=== PATIENT | female | born 1990 | race American Indian/Alaskan Native ===

== ENCOUNTER 2017-09-28 12:44 | Emergency (ER) | payer BC, OTHER ==
[2017-09-28 13:16] VITALS: BP 112/56; PULSE 80; RESP 18; TEMP 99
[2017-09-28] MEDS ORDERED: predniSONE 20 MG TAB PO STA (14:06)
[2017-09-28] MEDS ORDERED: IBUPROFEN 800 MG TAB PO STA (14:07)
[2017-09-28] MEDS ORDERED: IBUPROFEN 600 MG TAB PO STA (14:13)
--- NOTE | 2017-09-28 14:16 | ED ---
Extremity Problem HPI - General Chief complaint: Extremity Problem,Nontraumatic Stated complaint: Numbness in Arm Time Seen by Provider: 09/28/17 13:57 Source: patient Mode of arrival: ambulatory Limitations: no limitations - History of Present Illness Initial comments: Patient is a right-handed 27-year-old female presenting to the emergency department with chief complaint of paresthesia to her right upper forearm. Patient states the paresthesia started after she woke up about noon today. Patient reports similar symptoms in the past but states they have usually dissipated after she started moving her arm around. Patient states she became concerned because the paresthesia is lingering. Patient denies any recent injury or trauma. Patient denies any radiation to her neck or right hand or fingers. Patient denies any recent illness, chills, fevers, nausea, vomiting, shortness of breath, chest pain, or abdominal pain. Patient denies any tingling. - Related Data Home Medications Medication Instructions Recorded Confirmed Kib-Bgjb-Odooj Acid 1 each PO DAILY 12/09/14 12/21/14 [-U Capsule] Calcium Carbonate [Tums] 500 mg PO TID PRN 12/21/14 12/21/14 Previous Rx's Medication Instructions Recorded Ibuprofen [Motrin] 600 mg PO Q6HR PRN #30 tab 12/23/14 Sertraline HCl [Zoloft] 25 mg PO DAILY #7 tab 12/23/14 Sertraline [Zoloft] 50 mg PO DAILY #30 tab 12/23/14 Ibuprofen [Motrin] 600 mg PO Q6HR PRN #20 tab 09/28/17 Allergies Allergy/AdvReac Type Severity Reaction Status Date / Time No Known Allergies Allergy Verified 09/28/17 13:16 Review of Systems ROS Statement: Those systems with pertinent positive or pertinent negative responses have been documented in the HPI. ROS Other: All systems not noted in ROS Statement are negative. Past Medical History Past Medical History: No Reported History History of Any Multi-Drug Resistant Organisms: None Reported Past Surgical History: No Surgical Hx Reported Past Psychological History: Anxiety, Depression Smoking Status: Never smoker Past Alcohol Use History: None Reported Past Drug Use History: None Reported General Exam - General Exam Comments Initial Comments: GENERAL: Pt awake and alert, well-appearing, well-nourished, and in no acute distress. HEAD: Atraumatic, normocephalic. EYES: Pupils equal, round, and reactive to light, extraocular movements intact, sclera anicteric, conjunctiva are normal. ENT: Oropharynx clear without exudates. Moist mucous membranes. NECK:Normal range of motion, supple without lymphadenopathy or JVD. No cervical tenderness to palpation. LUNGS: Breath sounds clear to auscultation bilaterally. No wheezes, rales, or rhonchi. HEART: Heart S1, S2, no S3 or S4. Regular rate and rhythm. No murmurs, rubs or gallops. ABDOMEN: Soft, nontender, nondistended, normoactive bowel sounds. No guarding, no rebound. No masses or organomegaly appreciated. MUSCULOSKELETAL: Normal ROM, no tenderness. Strength 5/5. EXTREMITIES: 2+ peripheral pulses. No edema, clubbing or cyanosis. NEUROLOGICAL: Pt oriented x 3. Cranial nerves II through XII grossly intact. Strength and sensation grossly intact. PSYCH: Normal mood, normal affect. SKIN: Warm, dry, intact. Normal turgor. No rashes or lesions. Limitations: no limitations Course Vital Signs 09/28/17 13:12 Temperature 99.0 F Pulse Rate 80 Respiratory 18 Rate Blood Pressure 112/56 O2 Sat by Pulse 98 Oximetry Medical Decision Making - Medical Decision Making Paresthesia to right upper extremity. Patient instructed to continue Motrin for pain and discomfort. Patient instructed to follow-up with orthopedic service if numbness persists. Patient instructed to return to emergency department with any new or worsening symptoms. Patient agrees with treatment plan. Discharge instructions and return parameters reviewed. Disposition Clinical Impression: Paresthesia of right upper extremity Disposition: HOME SELF-CARE Condition: Good Instructions: Paresthesia (ED) Additional Instructions: Continue Motrin 600 every 6 hours for pain and discomfort. [facility] if pain persists. Please return to the emergency department with any new or worsening symptoms. Prescriptions: Ibuprofen [Motrin] 600 mg PO Q6HR PRN #20 tab PRN Reason: Pain Referrals: Kwesi Qureshi MD [Primary Care Provider] - 1-2 days Geoffrey Eugene MD [STAFF PHYSICIAN] - 1-2 days Time of Disposition: 14:15
== END 2017-09-28 14:22 | disposition home or self-care (01) ==
LOC: EC 12:44
DX: R20.2 Paresthesia of skin (principal); Z79.899 Other long term (current) drug therapy
CPT/HCPCS: 99283

== ENCOUNTER → 2019-09-22 | Outpatient (CLI) | payer BC, OTHER ==
--- NOTE | 2019-09-23 08:23 | US ---
EXAMINATION TYPE: US pelvis complete transvag DATE OF EXAM: 09/22/2019 COMPARISON: Previous OB US CLINICAL HISTORY: R10.2 PELVIC PAIN,N94.6 DYSMENNORHEA. Dysmenorrhea. Hx ovarian cysts. . TECHNIQUE: Transvaginal (TV) and Transabdominal (TA) . Transabdominal sonographic images of the pel vis were acquired. Transvaginal sonographic images were medically necessary to better assess the fol lowing anatomy: ovaries, endometrium. Date of LMP: EXAM MEASUREMENTS: Uterus: 9.8 x 7.2 x 5.0 cm Endometrial Stripe: 1.34 cm Right Ovary: 3.4 x 2.4 x 1.9 cm Left Ovary: 3.7 x 2.9 x 2.3 cm 1. Uterus: Retroverted Appears heterogeneous. 2. Endometrium: measures 1.34 cm. 3. Right Ovary: Anechoic areas seen, largest measures: 1.3 x 1.1 x 1.1 cm. 4. Left Ovary: Anechoic areas seen, largest measures: 1.0 x 0.7 x 0.7 cm. 5. Bilateral Adnexa: Anechoic area seen in the left adnexa, adjacent to left ovary measurin.2 x 1.8 x 1.2 cm. 6. Posterior cul-de-sac: appears wnl IMPRESSION: 1. Endometrial thickness is within normal limits for a premenopausal female. 2. Cystic left adnexal anechoic simple appearing lesion appears as a paraovarian cyst measuring up to 1.8 cm. Physiologic follicular changes are seen in both ovaries.
== END | disposition home or self-care (01) ==
LOC: RADUSWWP 15:54
PROVIDERS: ATTEND Internal Medicine
DX: N83.292 Other ovarian cyst, left side (principal)
CPT/HCPCS: 76830; 76856

== ENCOUNTER → 2019-10-20 | Outpatient (CLI) | payer BC ==
[2019-10-20 16:34] LABS: MCH 29.1 pg (25.0-35.0); MCHC 34.4 g/dL (31.0-37.0); MCV 84.7 fL (80.0-100.0); Mean Platelet Volume 6.3; Platelet Count 277 k/uL (150-450); RBC 4.13 m/uL (3.80-5.40); RDW 13.6 % (11.5-15.5); WBC 6.8 k/uL (3.8-10.6)
[2019-10-20 23:26] LABS: Estradiol 98.5 pg/mL; Follicle Stimulating Hormone 3.9 mIU/mL; Luteinizing Hormone 6.4 mIU/mL; Prolactin 20.2 ng/mL (2.8-29.2)
[2019-10-20 23:29] LABS: T4, Free (Free Thyroxine) 0.9 ng/dL (0.80-1.80)
[2019-10-20 23:30] LABS: Progesterone 11.2 ng/mL
== END | disposition home or self-care (01) ==
LOC: LABWHC1 15:47
PROVIDERS: ATTEND Obstetrics & Gynecology
DX: N94.6 Dysmenorrhea, unspecified (principal); N92.0 Excessive and frequent menstruation with regular cycle
CPT/HCPCS: 36415; 82670; 83001; 83002; 84144; 84146; 84439; 84443; 84479; 85027

== ENCOUNTER → 2024-06-25 | Day surgery (SDC) | payer BC ==
--- NOTE | 2024-07-27 11:47 | USB ---
Pathology Description: Location: 12 o'clock. Cyst Aspiration, no clip, no mammoThe ultrasound guided cyst aspiration procedure was explained to the patient. The risks, benefits, alternatives were discussed. An informed consent was then obtained. A time out was performed. The lobulated cyst at the 12:00 position right breast is identified and targeted for aspiration. This measures 2.4 x 1.5 x 1.1 cm. The patient was placed in supine positioning for imaging and for the procedure. The overlying skin was prepped with betadine and sterilely draped in usual sterile fashion. 7 ml 1% lidocaine was used as anesthetic into the skin and deeper breast tissue up to area of concern in the right breast 12 o'clock, 4 cm from nipple. Under ultrasound guidance, an 18-gauge spinal needle was advanced into the cyst and aspiration yielded 1 mL of clear brown cyst fluid. The cyst collapsed completely. The fluid was labeled and sent for laboratory analysis. No microclip was deposited. Good hemostasis was obtained with direct pressure. Postprocedure mammogram: None. The patient tolerated the procedure well without any immediate complication. The patient was discharged to home in stable condition. IMPRESSION: Successful ultrasound guided cyst aspiration right breast, 12:00, 2.4 cm lobulated cyst. Benign etiology is suggested given the ultrasound and fluid appearance. Cytology pending. Pathology Results: Result: Benign. Pathology and radiology were reviewed. Findings are concordant. RIGHT BREAST CYST, 12:00, ASPIRATION: Hypocellular fluid with few cells having apocrine metaplastic change (see note). Notes The findings seen are favored to represent cystic fluid from fibrocystic change, based on the hypocellular specimen received having few cells with apocrine metaplasia. Correlation with imaging studies is suggested, as indicated. If there is clinical concern for malignancy, a core tissue biopsy can be performed, if indicated. Overall Assessment: Benign Management: Diagnostic Mammogram of the right breast in 6 months. Electronically signed and approved by: Gala Perez M.D. Radiologist
== END ==
LOC: RADUSWWP 12:00
PROVIDERS: ATTEND Family Medicine
DX: N60.11 Diffuse cystic mastopathy of right breast (principal); N60.81 Other benign mammary dysplasias of right breast
CPT/HCPCS: 76942; 88173; 88305